=== PATIENT | male | born 1935 | race Caucasian/White ===

== ENCOUNTER 2019-11-20 11:29 | Outpatient (CLI) | payer MEDICARE, BC, SELFPAY ==
--- NOTE | 2019-11-20 | US_ITS ---
WS: [id number] ULTRASOUND ABDOMEN LIMITED CLINICAL INFORMATION: RUQ PAIN COMPARISON: None. FINDINGS: Liver Size: Mild hepatomegaly Craniocaudal length: 16.6 cm. Echogenicity: Coarse echogenicity consistent with infiltration Surface nodularity: None. Mass (size and location): None. Bile ducts Intrahepatic ducts: Mild dilatation Common bile duct diameter: 2.9 mm. Gallbladder Echogenic intraluminal gallbladder mass suspicious for neoplasm. This measures approximately 5.3 x 2. 9 CM. Additional consideration is tumefactive sludge. Associated gallbladder wall thickening measurin g 5.2 mm. Pancreas Not well seen Right kidney: Normal. Hydronephrosis: None. Size: 10.8 cm x 5.9 cm x 5.7 cm. Abdominal aorta and IVC Visualized portions are normal. Ascites: None. US/US gall bladder [id number] IMPRESSION: 1. Irregular echogenic intraluminal gallbladder mass suspicious for neoplasm m easuring 5.3 x 2.9 CM. This can be further evaluated with CT abdomen pelvis. As sociated gallbladder wall thickening measuring 5.2 mm. 2. Mild hepatomegaly with diffuse fatty infiltration. 3. Mild intrahepatic biliary ductal dilatation. 4. No hydronephrosis in right kidney.
== END 2019-11-20 11:30 | disposition home or self-care (01) ==
PROVIDERS: Visit Provider Nurse Practitioner Family
DX: Z76.89 Persons encountering health services in other specified circumstances (principal)

== ENCOUNTER 2019-11-25 12:32 | Outpatient (CLI) | payer MEDICARE, BC, SELFPAY ==
--- NOTE | 2019-11-25 12:45 | CT_ITS ---
WS: [id number] CT ABDOMEN PELVIS TECHNIQUE: Contrast-enhanced CT of the abdomen and pelvis with coronal and sagittal reformatted image s. CLINICAL INFORMATION: GALLBLADDER MASS COMPARISON: None. DLP: 868.[address] scans at [facility] use at least one of these dose optimization techniques: automat ed exposure control; mA and/or kV adjustment per patient size (includes targeted exams where dose is matched to clinical indication); or iterative reconstruction. FINDINGS: Mild diffuse fatty infiltration liver. Normal portal vein and splenic vein. Diffuse gallbladder wall thickening with submucosal enhancement. Small enhancing lesion in the gallbladder wall measuring 5 mm likely representing a small polyp. No inflammatory stranding and fluid in gallbladder fossa. Echogen ic intraluminal process seen on the prior ultrasound not well demonstrated on this study. Primary dif ferential considerations include adenomyomatosis or cholesterolosis with diffuse gallbladder wall inv olvement. No evidence of acute cholecystitis. Spleen is normal. Tiny cyst right hepatic lobe laterally. Mild pancreatic fatty atrophy. Adrenal glan ds are normal. Left renal cyst measuring 2.9 cm. No hydronephrosis. Small esophageal hiatal hernia. B ibasilar atelectasis. Normal caliber abdominal aorta. Aortic calcification. Sigmoid diverticulosis. N o evidence of acute diverticulitis. No evidence of small or large bowel obstruction. Prostate enlargement measuring 3.8 x 4.8 cm. Recomme nd correlation PSA. No pelvic sidewall lymphadenopathy. 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 CT/CT abdomen pelvis w con* [id number] IMPRESSION: 1. Diffuse gallbladder wall thickening with peripheral enhancement. Enhancing 5 mm polyp in the gallbladder wall. Differential considerations include cholest erolosis versus adenomyomatosis with diffuse gallbladder wall involvement. 2. Diffuse echogenic intraluminal debris seen on the prior ultrasound not well demonstrated on this study. Recommend surgery consult for additional gallbladd er evaluation/resection. 3. Small esophageal hiatal hernia. 4. No abdominal lymphadenopathy. 5. Diverticulosis. 6. Enlarged prostate measuring 3.8 x 4.8 cm. Recommend correlation PSA. 7. Left renal cyst measuring 2.9 cm.
[2019-11-25] MEDS: iohexol 300 mg/mL 100 mL Btl IV (14:07)
[2019-11-25] MEDS: iohexol 300 mg/mL 50 mL Btl PO (14:20)
== END 2019-11-25 12:33 | disposition home or self-care (01) ==
PROVIDERS: PCP Physician Assistant; Visit Provider Physician Assistant
DX: K82.8 Other specified diseases of gallbladder (principal); Q61.01 Congenital single renal cyst; N40.0 Benign prostatic hyperplasia without lower urinary tract symptoms; K57.90 Diverticulosis of intestine, part unspecified, without perforation or abscess without bleeding; K44.9 Diaphragmatic hernia without obstruction or gangrene
CPT/HCPCS: 74177

== ENCOUNTER 2019-12-09 05:36 | Day surgery (SDC) | payer MEDICARE, BC, SELFPAY ==
[2019-12-08 11:12] VITALS: BMI 25.3
--- NOTE | 2019-12-08 11:17 | ECG_ITS ---
Measurements Intervals [place] Rate: 86 P: 35 AL: 187 QRS: -30 QRSD: 84 T: 69 QT: 360 QTc: 432 SINUS RHYTHM BORDERLINE LEFT AXIS DEVIATION [QRS AXIS < -20] NONSPECIFIC T-WAVE ABNORMALITY No previous ECG available for comparison Electronically Signed On 12-08-2019 13:22:57 IT SYSTEMS ANALYST CONSULTANT by Mayra Sanchez M.D. [email or web address]
--- NOTE | 2019-12-08 11:46 | ANES.PREANE2 ---
Pre-Anesthetic Assessment Pre-Anesthetic Assessment: Height/Weight: Height 1.83 m Weight 84.822 kg Preop Diagnosis: Chronic cholecystitis Proposed Procedure: Operation Date: 12/09/19 07:00 Proposed Procedures p Laparoscopic Cholecystectomy 25254 R10.11(Not Applicable) - Phillip Baez MD Social: Social History: Tobacco Pack years: 21 Comment: quit 51y Exam: Pre-Anes Outpt Exam: alert, oriented x 3, clear to auscultation bilaterally and regular rate & rhythm Airway: Submandibular: WNL Cervical ROM: Other MP: 2 Dentition: False Pulmonary: Pulmonary: COPD Comments: breathing feels good CV/HEM: CV/HEM: HTN Comments: rx'd 26y stress test 10 negative heart cath neg 2 blocks/2FOS without angina/[place] GI: GI: GERD Metabolic: Metabolic: DM (off meds x 3y) Musc/skel: Musc/skel: Lower Back Pain Comments: bilateral radiculopathy Anesthetic Plan: ASA status: 2 PFSH Anesthesia PFSH: Social History Smoking and tobacco status: never smoked Second hand smoke exposure: No Alcohol intake: never Adopted: No Caregiver/support person: Yes Lives independently: Yes Housing: House Marital status: service: No Current occupational status: retired Current occupational exposures/hazards: No Pets and animals: No History of recent travel: No Sexually active: No Current gender identity: Male Prabha/Yazdanism: Christianity Special prabha needs: No Agree to transfusion: No Financial difficulty paying for basics: Decline to Answer Data Anesthesia Cardiac Studies: No Data to Display
[2019-12-08 12:03] LABS: Basophils # 0.1 10^3/uL (0.0-0.1); Basophils % 0.9 %; Eosinophils # 0.3 10^3/uL (0.0-0.8); Eosinophils % 4.4 %; Hematocrit 45.3 % (42.0-52.0); Hemoglobin 14.6 g/dL (11.7-16.6); Lymphocytes # 2.2 10^3/uL (0.8-4.8); Lymphocytes % 28.8 %; Mean Corpuscular HGB Conc 32.2 g/dL (30.0-36.0); Mean Corpuscular Hemoglobin 28.9 pg (28.0-34.0); Mean Corpuscular Volume 89.5 fL (80-94); Mean Platelet Volume 11.4 fL (7.4-10.4); Monocytes # 0.6 10^3/uL (0.2-0.9); Monocytes % 8.4 %; Neutrophils # 4.3 10^3/uL (1.8-7.7); Neutrophils % 57.2 %; Nucleated Red Blood Cells % 0 %; Platelet Count 210 10^3/cmm (130-400); Red Blood Count 5.06 10^6/uL (4.1-5.3); White Blood Count 7.5 10^3/uL (4.0-10.0)
[2019-12-08 12:16] LABS: Alanine Aminotransferase 33 U/L (0-41); Albumin Level 4.2 g/dL (3.5-5.2); Alkaline Phosphatase 139 IU/L (40-130); Anion Gap 16.8 (5-19); Aspartate Amino Transferase 53 U/L (0-40); Blood Urea Nitrogen 12 mg/dL (8-23); Calcium 9.5 mg/dL (8.5-10.5); Carbon Dioxide 23 mmol/L (22-29); Chloride 103 mmol/L (98-107); Globulin 3.5 g/dL (1.3-4.6); Glucose 132 mg/dL (65-115); Potassium 3.82; Sodium 139 mmol/L (136-145); Total Bilirubin 0.4 mg/dL (0.15-1.2); Total Protein 7.7 g/dL (6.6-8.7)
[2019-12-09] VITALS (10 sets, daily range): BP systolic 134–151; BP diastolic 83–95; PULSE 84–93; RESP 16–28; TEMP 36.1–36.8; O2SAT 91–99
--- NOTE | 2019-12-09 06:11 | P.ANESUD_ITS ---
Pre-Anesthetic Update Pre-Anesthetic Assessment: Date of Surgery/Procedure: 12/09/19 Preop Brittney gnosis: Chronic cholecystitis Proposed Procedure: Operation Date: 12/09/19 07:00 Proposed Procedures p Laparoscopic Cholecystectomy 09143 R10.11(Not Applicable) - Phillip Baez MD Any changes to Pre-Anesthetic Assessment?: No Last Intake: NPO > 8 hrs Labs Last 48hrs: Laboratory Results - last 48 hr 12/08/19 12/08/19 11:30 11:30 WBC 7.5 RBC 5.06 Hgb 14.6 Hct 45.3 MCV 89.5 MCH 28.9 MCHC 32.2 RDW 14.0 Plt Count 210 MPV 11.4 H Neut % (Auto) 57.2 Lymph % (Auto) 28.8 [place] % (Auto) 8.4 Eos % (Auto) 4.4 Baso % (Auto) 0.9 Neut # (Auto) 4.3 Lymph # (Auto) 2.2 [place] # (Auto) 0.6 Eos # (Auto) 0.3 Baso # (Auto) 0.1 Nucleated RBC % (a uto) 0 Nucleated RBCs # 0.0 Sodium 139 Potassium 3.82 Chloride 103 Carbon Dioxide 23 Anion Gap 16.8 BUN 12 Creatinine 1.0 Glucose 132 H Calcium 9.5 Total Bilirubin 0.4 AST 53 H ALT 33 Alkaline Phosphata se 139 H Total Protein 7.7 Albumin 4.2 Globulin 3.5 Exam: Pre-Anes Outpt Exam: alert, oriented x 3, clear to auscultation bilaterally and regular rate & rhythm Cardiac Studies: No Data to Display
--- NOTE | 2019-12-09 06:55 | W.PM.OPSUD ---
Surgery/Procedure H&P Update DATE OF PROCEDURE: December 09, 2019 DATE H&P PERFORMED: 11/30/19 H&P UPDATE INFORMATION: I have reviewed H&P completed within last 30 days, I have examined patient prior to procedure and No changes to prior documentation PREOP DIAGNOSIS: Chronic cholecystitis PLANNED PROCEDURE: Operation Date: 12/09/19 07:00 Proposed Procedures p Laparoscopic Cholecystectomy 74540 R10.11(Not Applicable) - Phillip Baez MD
--- NOTE | 2019-12-09 08:00 | P.OP_ITS ---
Operative Report Date of procedure: December 09, 2019 Pre-op Diagnosis: Chronic cholecystitis Post-op Diagnosis: Macronodular liver Chronically inflamed gallbladder with adhesions of the liver to the abdominal wall Procedure Done: Laparoscopic cholecystectomy Laparoscopic wedge biopsy of the liver Pathology: Wedge biopsy liver Gallbladder Surgeon: Phillip Baez Anesthesia: General Estimated blood loss (mL): 10 Condition: stable Disposition: PACU Procedure: The patient was taken to the operating room and was intubated under general anesthesia. After the antibiotic had been administered, the abdomen was prepped and draped in a sterile manner. Using a #15 blade, a 1 centimeter infraumbilical curvilinear incision was made and using an open Maday technique the peritoneal cavity was entered. A 10 millimeter port was placed and 15 millimeters of pneumoperitoneum was created. A 10 millimeter, 30 degrees scope was then introduced. Three 5 millimeter ports were placed in the epigastric, midclavicular and the anterior axillary line two fingerbreadths below the costal margin on the right side under the direct visualization. The omentum was adherent to the body of the gallbladder and there are multiple lesions within the liver and the abdominal wall. The liver appeared macronodular. Using electrocautery the omentum and the adhesions were taken down until the gallbladder could be visualized. The gallbladder was distended. Ratcheted forceps were introduced into the lateral most port and was used to retract the fundus of the gallbladder cephalad and using forceps the infundibulum of the gallbladder was retracted laterally. There was spillage of bile acid of the gallbladder was grasped which was irrigated and suctioned out. There was no spillage of stones. Using L-hook cautery the peritoneum overlying the Calot's triangle was opened medially and laterally until the cystic duct and the cystic artery were skeletonized. Dissection was carried along the body of the gallbladder and after ensuring critical view of safety, 4 clips applied on the cystic duct and 3 clips applied on the cystic artery and cut leaving, 3 clips on the remaining portion of the duct and 2 clips on the remaining portion of the artery. The rest of the gallbladder was dissected off the liver using L-hook cautery. There was no bleeding or bile leaking noted from the gallbladder fossa and the clips appeared to be in place. An EndoCatch bag was introduced to remove the gallbladder. Using electrocautery and laparoscopic scissors a wedge biopsy of the liver was obtained from the edge of the near liver near the gallbladder fossa. Hemostasis was ensured with electrocautery. All the ports were removed under direct visualization and there was no bleeding noted from the port sites. The fascia of the umbilicus was closed using [id number] Vicryl sutures and the subcutaneous tissue was approximated using 3-0 Vicryl sutures. The skin at all four ports were closed using 4-0 Monocryl and D ermabond. A total of 10 millimeters of 0.5% Marcaine was infiltrated around the port sites. The patient was stable throughout the procedure.
--- NOTE | 2019-12-09 08:24 | SUR.PHASEI ---
pt aawkes alert oral airway out pt deniea pain vss. abd soft
[2019-12-09] MEDS: sodium chloride 0.9% 1,000 ML 30 ML IV (09:28)
== END 2019-12-09 09:37 | disposition home or self-care (01) ==
PROVIDERS: Anesthesiology; PCP Physician Assistant; Visit Provider Surgery
PROC: 0FT44ZZ Resection of Gallbladder, Percutaneous Endoscopic Approach (ICD-10-PCS; CPT 47562; principal; 2019-12-09 07:00)
PROC: 0FB04ZX Excision of Liver, Percutaneous Endoscopic Approach, Diagnostic (ICD-10-PCS; CPT 47379; 2019-12-09 07:00)
DX: K80.10 Calculus of gallbladder with chronic cholecystitis without obstruction (principal); K66.0 Peritoneal adhesions (postprocedural) (postinfection); J44.9 Chronic obstructive pulmonary disease, unspecified; I10 Essential (primary) hypertension
CPT/HCPCS: 47379; 47562; 12345; 80053; 85025; 88304; 88307; 93005; J0131; J0690; J2001; J2405; J2704; J2710; J3010; J3490; J7030

== ENCOUNTER 2020-12-27 15:34 | Outpatient (CLI) | payer MEDICARE, BC, SELFPAY ==
--- NOTE | 2020-12-27 | USCV_ITS ---
Carlos A Allison Age: 85 Gender: M : 1935 Exam Date: 12/27/2020 16:21 Ordering Phys: Nadiya Toney Technologist: Haritha Portillo Exam Location: [facility] – [place] Indication: systolic murmur BP: / HR: Rhythm: Other Technical Quality: Adequate MEASUREMENTS (Male / Female) Normal Values FINDINGS Left Ventricle Normal left ventricular size. LV systolic function is normal with EF of 55-60%.No regional wall motion abnormalities. Grade 1 diastolic dysfunction Right Ventricle The right ventricle is normal in size and function. Bulging of the right sinus of valsalva is seen in the RVOT Right Atrium The right atrium is normal in size. Left Atrium The left atrium is normal in size. Mitral Valve Structurally normal mitral valve without significant stenosis or prolapse. There is trace mitral regurgitation. Aortic Valve Aortic valve is thickened. 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 Moderate to severe aortic stenosis is noted. By continuity equation, aortic valve area is 0.8cm2 with mean gradient across the valve of 33mmHg. There is mild aortic regurgitation. Tricuspid Valve Structurally normal tricuspid valve without significant stenosis or regurgitation. Insufficient TR jet to calculate RVSP Pulmonic Valve Structurally normal pulmonic valve without significant stenosis. There is mild pulmonic regurgitation. Pericardium Normal pericardium without effusion. 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 Moderate to severe aortic stenosis is noted. By continuity equation, aortic valve area is 0.8cm2 with mean gradient across the valve of 33mmHg. There is mild aortic regurgitation. 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 Will recommend CTA or Transesophageal echocardiogram to confirm the diagnosis and assess size as soon as possible Trace mitral regurgitation. No comparison studies are available Aryan Bosch MD (Electronically Signed) Final Date: 06 January 2021 15:43 S
== END 2020-12-27 15:35 | disposition home or self-care (01) ==
LOC: US 15:35
PROVIDERS: PCP Physician Assistant; Visit Provider Physician Assistant
DX: R01.1 Cardiac murmur, unspecified (principal); I35.0 Nonrheumatic aortic (valve) stenosis
CPT/HCPCS: 93306

== ENCOUNTER → 2022-04-30 11:14 | Outpatient (BNVA) | payer MEDICARE, BC, SELFPAY | PROVIDERS: PCP Physician Assistant; Visit Provider Podiatrist Foot & Ankle Surgery | DX: L60.3 Nail dystrophy (principal); M79.673 Pain in unspecified foot; M21.6X9 Other acquired deformities of unspecified foot; E11.42 Type 2 diabetes mellitus with diabetic polyneuropathy | CPT/HCPCS: 11721; 99203; 99204 ==